=== PATIENT | male | born 1975 | race African-American/Black ===

== ENCOUNTER 2018-06-02 13:46 | Emergency (ER) | payer OTHER ==
[~2018-06-02] VITALS: Ht 182.9 cm; Wt 116.6 kg
[~2018-06-02 13:46] MED LIST: AZITHROMYCIN1 G/PKT; KETO10TA2 PO
== END 2018-06-02 18:31 | disposition home or self-care (01) ==
LOC: ER 13:46
DX: H92.02 Otalgia, left ear (principal)

== ENCOUNTER 2018-12-02 10:27 | Outpatient (CLI) | payer OTHER | END 2018-12-02 10:44 | disposition home or self-care (01) | LOC: SONOGRAMA 10:27 → MAMO-SONO 11:45 | DX: M25.511 Pain in right shoulder (principal) ==

== ENCOUNTER 2019-07-10 23:05 | Emergency (ER) | payer OTHER ==
[~2019-07-10] VITALS: Ht 182.9 cm; Wt 98.0 kg
[2019-07-11] MEDS ORDERED: PEPCID AC20 MG PO (04:44)
[2019-07-11] MEDS ORDERED: IMODIUM A-D2 M2 PO (04:44)
== END 2019-07-11 05:04 | disposition home or self-care (01) ==
LOC: ER 23:05
DX: A08.8 Other specified intestinal infections (principal)

== ENCOUNTER 2020-03-11 16:04 | Emergency (ER) | payer OTHER ==
[~2020-03-11] VITALS: Ht 185.4 cm; Wt 103.0 kg
[~2020-03-11 16:04] MED LIST changes: +IMODIUM A-D2 M2 PO; +PEPCID AC20 MG PO
[2020-03-11] MEDS ORDERED: NORFLEX100MG PO (16:26)
[2020-03-11] MEDS ORDERED: CAMBIA50 MG PO (16:26)
== END 2020-03-11 18:50 | disposition home or self-care (01) ==
LOC: ER 16:04
DX: S13.8XXA Sprain of joints and ligaments of other parts of neck, initial encounter (principal); X50.3XXA Overexertion from repetitive movements, initial encounter; X50.9XXA Other and unspecified overexertion or strenuous movements or postures, initial encounter; Y93.B9 Activity, other involving muscle strengthening exercises; Y92.89 Other specified places as the place of occurrence of the external cause; Y99.8 Other external cause status

== ENCOUNTER 2020-09-24 06:01 | Emergency (ER) | payer OTHER ==
[~2020-09-24] VITALS: Ht 185.4 cm; Wt 102.5 kg
[~2020-09-24 06:01] MED LIST changes: +CAMBIA50 MG PO; +NORFLEX100MG PO
== END 2020-09-24 07:03 | disposition home or self-care (01) ==
LOC: ER 06:01
DX: S90.32XA Contusion of left foot, initial encounter (principal); W05.1XXA Fall from non-moving nonmotorized scooter, initial encounter; Y93.89 Activity, other specified; Y92.89 Other specified places as the place of occurrence of the external cause; Y99.8 Other external cause status

== ENCOUNTER 2021-11-19 00:36 | Emergency (ER) | payer OTHER ==
[~2021-11-19] VITALS: Ht 185.4 cm; Wt 108.9 kg
[2021-11-19] MEDS ORDERED: KETO10TA2 PO (02:15)
[2021-11-19] MEDS ORDERED: ORPHENADRINE C100 MG PO (02:15)
[2021-11-19] MEDS ORDERED: CORTISPORIN EAR10 M1 OPHT (02:15)
== END 2021-11-19 02:21 ==
LOC: ER 00:36
DX: T16.2XXA Foreign body in left ear, initial encounter (principal); X58.XXXA Exposure to other specified factors, initial encounter; Y93.9 Activity, unspecified; Y92.9 Unspecified place or not applicable; Y99.9 Unspecified external cause status; M54.50 Low back pain, unspecified

== ENCOUNTER 2022-04-23 08:41 | Emergency (ER) | payer OTHER ==
[~2022-04-23] VITALS: Ht 185.4 cm; Wt 111.6 kg
[~2022-04-23 08:41] MED LIST changes: +CORTISPORIN EAR10 M1 OPHT; +ORPHENADRINE C100 MG PO
[2022-04-23] MEDS ORDERED: FLONASE ALLERG9.9 ML NASAL (11:29)
[2022-04-23] MEDS ORDERED: ZYRTEC10 M3 PO (11:29)
[2022-04-23] MEDS ORDERED: ZITHROMAX500 MG PO (11:35)
== END 2022-04-23 13:17 | disposition home or self-care (01) ==
LOC: ER 08:41
DX: J00 Acute nasopharyngitis [common cold] (principal)